=== PATIENT | female | born 1985 | race Caucasian/White ===

== ENCOUNTER 2021-06-25 13:33 | Emergency (ER) | payer SELFPAY ==
[2021-06-25 13:47] VITALS: BP 158/101
[2021-06-25] MEDS ORDERED: ROPIVACAINE 0.5% PF 30 ML VIAL SUBQ STA (14:46)
--- NOTE | 2021-06-25 15:09 | ED Physician Documentation ---
History of Present Illness - Stated complaint Stated Complaint: FINGER LAC - Chief complaint Chief Complaint: Laceration - History obtained from History obtained from: Patient - History of Present Illness Timing: Today Pain level max: 3 Pain level now: 3 - Additonal information Additional information: L index finger accidentally cut with a hand saw. NVI. Td UTD Review of Systems Constitutional: denies: Fever, Chills GI: denies: Vomiting : denies: Now EGA Skin: denies: Rash PD PAST MEDICAL HISTORY - Past Medical History Past Medical History: No Psych: Anxiety - Past Surgical History Past Surgical History: Yes HEENT: Other - Present Medications Home Medications: Ambulatory Orders Medication Instructions Recorded Confirmed No Known Home Medications 06/25/21 06/25/21 - Allergies Allergies/Adverse Reactions: Allergies Allergy/AdvReac Type Severity Reaction Status Date / Time No Known Drug Allergies Allergy Verified 06/25/21 13:38 - Social History Does the pt smoke?: Yes Smoking Status: Current every day smoker Does the pt drink ETOH?: Yes ETOH Use: Liquor Does the pt have substance abuse?: No - Immunizations Immunizations are current?: Yes PD ED PE NORMAL - Vitals Vital signs reviewed: Yes - General General: Alert and oriented X 3, No acute distress - HEENT HEENT: Moist mucous membranes - Derm Derm: Warm and dry - Neuro Neuro: Alert and oriented X 3 PD ED PE EXPANDED - Extremities RADHA UE/Hands Visual: 1 - laceration (1.5cm, linear, subcutaneous. NVI. tendons intact) Results - Vitals Vitals: Oxygen O2 Source Room air - Labs Labs: Laboratory Tests 06/25/21 15:46 Urine HCG, Qual NEGATIVE Procedures - Laceration (location) L index finger Length in cm: 1.5 Wound type: Linear, Into subcut fat, Clean Neurovascular status: Sensory intact, Motor intact, Vascular intact Anesthesia: Marcaine 0.5% Wound preparation: Irrigated copiously NS, Wound explored, To the base Skin layer closure: Nylon, Interrupted, Size #-0 - enter number (4) Other: Patient tolerated well, No complications, Neurovascular intact, Dressing applied, Tetanus UTD PD MEDICAL DECISION MAKING - ED course Complexity details: considered differential, d/w patient ED course: Finger laceration repaired. Tolerated well. Warnings of infection and instructions on wound care given at bedside. Also counseled on how to minimize scarring. Patient is also homeless and new to the area, social work met with the patient to offer any options that may aid the patient. Patient counseled regarding signs and symptoms for which I believe and urgent re-evaluation would be necessary. Patient with good understanding of and agreement to plan and is comfortable going home at this time This document was made in part using voice recognition software. While efforts are made to proofread this document, sound alike and grammatical errors may occur. Departure - Departure Disposition: 01 Home, Self Care Clinical Impression: Finger laceration Qualifiers: Encounter type: initial encounter Finger: index finger Damage to nail status: without damage Foreign body presence: without foreign body Laterality: left Qualified Code(s): S61.211A - Laceration without foreign body of left index finger without damage to nail, initial encounter Condition: Good Instructions: ED Laceration Hand Comments: You can return in 10 to 14 days for suture removal. Keep the wound clean. Return if you notice redness, swelling or drainage from the wound. Your test is negative today. Discharge Date/Time: 06/25/21 16:41
[2021-06-25] MEDS ORDERED: BACITRACIN ZINC OINT 1 PACKET TOP STA (15:33)
[2021-06-25 15:55] LABS: HCG UR QUAL NEGATIVE
== END 2021-06-25 16:41 | disposition home or self-care (01) ==
LOC: ED 13:33
DX: S61.211A Laceration without foreign body of left index finger without damage to nail, initial encounter (principal); W31.2XXA Contact with powered woodworking and forming machines, initial encounter; F17.200 Nicotine dependence, unspecified, uncomplicated
CPT/HCPCS: 12001; 81025; 99282; 99283; A9270

== ENCOUNTER 2021-08-03 10:30 | Outpatient (CLI) | payer OTHER | END 2021-08-03 10:31 | disposition critical access hospital (66) | LOC: EMS 10:30 | DX: Z04.1 Encounter for examination and observation following transport accident (principal) | CPT/HCPCS: A0425; A0429 ==

== ENCOUNTER 2021-08-03 11:00 | Emergency (ER) | payer OTHER ==
[2021-08-03 12:09] LABS: MUDS CUTOFF CONCENTRATIONS CUTOFF CONC BELOW:
[2021-08-03 12:24] LABS: AMPHETAMINE SCREEN,URINE NEGATIVE (NEGATIVE); BARBITURATE SCREEN,UR NEGATIVE (NEGATIVE); BENZODIAZEPINES SCREEN, URINE NEGATIVE (NEGATIVE); COCAINE SCREEN URINE NEGATIVE (NEGATIVE); METHADONE SCREEN, URINE NEGATIVE (NEGATIVE); METHAMPHETAMINES SCREEN, URINE NEGATIVE (NEGATIVE); OPIATE SCREEN, URINE NEGATIVE (NEGATIVE); OXYCODONE SCREEN, URINE NEGATIVE (NEGATIVE); PROPOXYPHENE SCREEN, URINE NEGATIVE (NEGATIVE); THC CANNABINOID SCREEN, URINE POSITIVE (NEGATIVE); TRICYCLIC ANTIDEPRESSANT,URINE NEGATIVE (NEGATIVE)
--- NOTE | 2021-08-03 12:42 | XRAY Report ---
PROCEDURE: Bilateral ankle x-ray INDICATIONS: Trauma, pain TECHNIQUE: 2 views of each ankle were obtained COMPARISON: None FINDINGS: Bones: No fractures or dislocations. Ankle mortise is normally aligned. No suspicious bony lesions . Soft tissues: No tibiotalar joint effusion. Achilles tendon appears normal. IMPRESSION: Unremarkable bilateral ankle radiographs Reviewed by: James Gonzales MD on 08/03/2021 11:41 AM LUANNE Approved by: James Gonzales MD on 08/03/2021 11:41 AM LUANNE Station ID: [id number]
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
[2021-08-03 16:04] LABS: BASOPHILS # (AUTO) 0.1 10^3/uL (0.0-0.1); BASOPHILS % (AUTO) 0.8 %; EOSINOPHILS % (AUTO) 0.3 %; HGB - HEMOGLOBIN 14.8 g/dL (12.0-16.0); LYMPHOCYTES # (AUTO) 1.4 10^3/uL (1.5-3.5); LYMPHOCYTES % (AUTO) 24.4 %; MEAN CORPUSCULAR HEMOGLOBIN 33.8 pg (27.0-31.0); MEAN CORPUSCULAR HGB CONC 33.6 g/dL (32.0-36.0); MEAN CORPUSCULAR VOLUME 100.5 fL (81.0-99.0); MEAN PLATELET VOLUME 9.7 fL (7.9-10.8); MONOCYTES # (AUTO) 0.5 10^3/uL (0.0-1.0); MONOCYTES % (AUTO) 8.1 %; NEUTROPHILS # (AUTO) 3.9 10^3/uL (1.5-6.6); NEUTROPHILS % (AUTO) 66.1 %; PLT - PLATELET COUNT 165 10^3/uL (130-450); RED BLOOD COUNT 4.38 10^6/uL (4.20-5.40); RED CELL DISTRIBUTION WIDTH 14.6 % (12.0-15.0); WHITE BLOOD COUNT 5.9 x10^3/uL (4.8-10.8)
[2021-08-03 16:19] LABS: ACETAMINOPHEN < 10 ug/mL (10-30); ALBUMIN 4.7 g/dL (3.2-5.5); ALBUMIN/GLOBULIN RATIO 1.4 (1.0-2.2); ALKALINE PHOSPHATASE 125 IU/L (42-121); ALT ALANINE AMINOTRANSFERASE 351 IU/L (10-60); AST ASPARTATE AMINOTRANSFERASE 416 IU/L (10-42); BILIRUBIN,TOTAL 1.3 mg/dL (0.2-1.0); BUN - BLOOD UREA NITROGEN 6 mg/dL (6-20); CARBON DIOXIDE - CO2 24 mmol/L (21-32); CHLORIDE 101 mmol/L (101-111); CREATININE 0.7 mg/dL (0.4-1.0); ETOH - ETHANOL < 5.0 mg/dL; GFR - MDRD 96 (>89); GLUCOSE 84 mg/dL (70-100); LIPASE 51 U/L (22-51); POTASSIUM 3.5 mmol/L (3.5-5.0); SALICYLATE < 6.0 mg/dL; SODIUM 137 mmol/L (135-145); TOTAL PROTEIN 8.1 g/dL (6.7-8.2)
[2021-08-03 16:25] LABS: BILIRUBIN,URINE NEGATIVE (NEGATIVE); GLUCOSE, URINE (UA) NEGATIVE (NEGATIVE); KETONES,URINE (UA) TRACE mg/dL (NEGATIVE); LEUKOCYTE ESTERASE, URINE NEGATIVE (NEGATIVE); NITRITE,URINE NEGATIVE (NEGATIVE); OCCULT BLOOD,URINE NEGATIVE (NEGATIVE); PH,URINE 6.5 PH (5.0-7.5); PROTEIN,URINE NEGATIVE (NEGATIVE); UROBILINOGEN,URINE 0.2 (NORMAL) E.U./dL (NORMAL)
[2021-08-03 16:27] LABS: CLARITY,URINE CLEAR (CLEAR); HCG UR QUAL NEGATIVE
[2021-08-03] MEDS ORDERED: OLANZapine 10 MG VIAL IM STA (17:20)
[2021-08-03 17:22] LABS: B. PARAPERTUSSIS- RESP PCR PAN NOT DETECTED; B. PERTUSSIS- RESP PCR PANEL NOT DETECTED; C. PNEUMONIAE- RESP PCR PANEL NOT DETECTED; CORONAVIRUS 229E-RESP PCR NOT DETECTED; CORONAVIRUS HKU1-RESP PCR NOT DETECTED; CORONAVIRUS NL63-RESP PCR NOT DETECTED; CORONAVIRUS OC43-RESP PCR NOT DETECTED; HUMAN METAPNEUMOVIRUS NOT DETECTED; INFLUENZA A- RESP PCR PANEL NOT DETECTED; INFLUENZA B - RESP PCR PANEL NOT DETECTED; M. PNEUMONIAE- RESP PCR PANEL NOT DETECTED; PARAINFLUENZA VIRUS 1 NOT DETECTED; PARAINFLUENZA VIRUS 2 NOT DETECTED; PARAINFLUENZA VIRUS 3 NOT DETECTED; PARAINFLUENZA VIRUS 4 NOT DETECTED; RHINOVIRUS/ENTEROVIRUS NOT DETECTED; RSV- RESP PCR PANEL NOT DETECTED; SARS-CoV-2 -RESP PCR PANEL NOT DETECTED
[2021-08-03] MEDS ORDERED: OLANZapine ODT 5 MG TABLET TL ONE (21:34)
[2021-08-03] MEDS ORDERED: DROPERIDOL 5 MG/2 ML VIAL IM STA (22:30)
--- NOTE | 2021-08-04 00:26 | ED Physician Documentation ---
ED Addendum - Addendum Addendum: On change of shift the patient was sitting calmly on the cart and seemed to be gesturing with her hands and focused on slight hand movements and then looking around the room a bit. She would seem to respond to inapparent stimulus. This gave the impression of responding to internal stimulus. She was not really paying attention to others in the room. Subsequently she did start wanting to get up and seemed agitated. She was still able to be focused verbally. We did give a oral dose of Zyprexa repeating the medication that had been given earlier. This had some slight improvement over the next half hour or so. She was however at times making subtle or ineffective should say gestures of self-harm such as placing her throat against the edge of the Jarvis stand as if trying to push it through her neck. The stand was removed from the room. She did not have any other effective types of self-harm nor was she showing any aggression towards staff members. However she still seemed unfocused and not really able to explain her situation very well. She was given Inapsine 2.5 mg IM to see if that had better improvement in her thought process. This did seem to give her a little bit more calming affect. However given her inability to really focus on herself and some gesturing possibly for self-harm, it seemed reasonable to contact the [facility]CR for evaluation. Telepsych had been ordered while it was still pending with unknown completion time as yet. No apparent history of psychiatric disorders but should is acting in psychotic type manner. CITLALLI Shore was contacted and will come to the ER. At the time of his arrival the patient is a little bit more conversant and able to interact with him. We will see what his impression is. 08/04/21 00:22
[2021-08-04] MEDS ORDERED: OLANZapine ODT 5 MG TABLET TL ONE (06:48)
[2021-08-04 08:19] VITALS: BP 124/85
== END 2021-08-04 08:22 ==
LOC: EDUNIT# → ED 11:00
DX: S93.402A Sprain of unspecified ligament of left ankle, initial encounter (principal); S93.401A Sprain of unspecified ligament of right ankle, initial encounter; V59.9XXA Occupant (driver) (passenger) of pick-up truck or van injured in unspecified traffic accident, initial encounter; F23 Brief psychotic disorder; Z78.1 Physical restraint status; F17.200 Nicotine dependence, unspecified, uncomplicated; Z20.822 Contact with and (suspected) exposure to COVID-19
CPT/HCPCS: 0202U; 36415; 73600; 80053; 80306; 80307; 80320; 80329; 81003; 81025; 83690; 84443; 85025; 93005; 96372; 99285; A9270; 81001; 87086